=== PATIENT | female | born 1945 | race Caucasian/White ===

== ENCOUNTER → 2016-12-13 | Outpatient (CLI) | payer MEDICARE, OTHER | LOC: WI 11:23 | PROVIDERS: ATTEND Radiology Radiation Oncology | DX: C50.419 Malignant neoplasm of upper-outer quadrant of unspecified female breast (principal); D05.11 Intraductal carcinoma in situ of right breast; C77.3 Secondary and unspecified malignant neoplasm of axilla and upper limb lymph nodes | CPT/HCPCS: 77066; G0204 ==

== ENCOUNTER → 2017-04-17 | Outpatient (CLI) | payer MEDICARE, OTHER ==
[2017-04-17 13:54] LABS: ALANINE AMINOTRANSFERASE 37 U/L (9-52); ALBUMIN 4.2 g/dL (3.5-5.0); ALKALINE PHOSPHATASE 93 U/L (38-126); ASPARTATE AMINO TRANSFERASE 23 U/L (14-36); BILIRUBIN,DIRECT 0.3 mg/dL (0.0-0.4); BILIRUBIN,TOTAL 0.7 mg/dL (0.2-1.3); TOTAL PROTEIN 7.3 g/dL (6.3-8.2)
== END ==
LOC: OD 11:37
PROVIDERS: ATTEND Radiology Radiation Oncology
DX: Z79.899 Other long term (current) drug therapy (principal)
CPT/HCPCS: 36415; 80076

== ENCOUNTER → 2017-05-29 | Outpatient (CLI) | payer MEDICARE, OTHER ==
--- NOTE | 2017-05-29 12:46 | RADIOLOGY REPORT (SQ) ---
EXAM DESCRIPTION: MRI HEAD COMBO COMPLETED DATE/TIME: 05/29/2017 12:31 pm REASON FOR STUDY: BREAST CA METASTASIZED TO AXILLARY LYMPH NODE, UNSPECIFIED LATERALITY R51 HEADACH E COMPARISON: None. TECHNIQUE: Multiplanar imaging includes noncontrasted T1, T2, FLAIR, diffusion with ADC map and post gadolinium contrast T1 sequences. Images stored on PACS. CONTRAST TYPE AND DOSE: 18 mL Multihance. RENAL FUNCTION: GFR > 60. LIMITATIONS: None. FINDINGS: ANATOMY: No anomalies. Normal vascular flow voids. Pituitary fossa normal. CSF SPACES: Normal in size and contour. No hemorrhage. CEREBRUM: Sulci and gyri normal in size and contour. Normal white matter signal on FLAIR imaging. No evidence of hemorrhage, mass, or extraaxial fluid collection. No abnormal enhancement post contrast. POSTERIOR FOSSA: No signal alteration. No hemorrhage. No edema, masses, or mass effect. Internal tee tory canals, cerebellopontine angles, mastoids normal. No enhancing lesions. No abnormal enhancement post contrast. DIFFUSION IMAGING: Negative for acute or subacute infarction. ORBITS: No masses. Globes normal. PARANASAL SINUSES: No fluid levels. Mucosa normal. OTHER: No other significant finding. IMPRESSION: NORMAL MRI OF THE BRAIN WITHOUT AND WITH INTRAVENOUS GADOLINIUM CONTRAST. EVIDENCE OF ACUTE STROKE: NO. TECHNICAL DOCUMENTATION: JOB ID: [id number] [employer]- All Rights Reserved
== END ==
LOC: RAD 10:51
PROVIDERS: ATTEND Internal Medicine Medical Oncology
DX: C50.919 Malignant neoplasm of unspecified site of unspecified female breast (principal); C77.3 Secondary and unspecified malignant neoplasm of axilla and upper limb lymph nodes
CPT/HCPCS: 82565; 70553; A9577

== ENCOUNTER → 2017-07-26 | Outpatient (CLI) | payer MEDICARE, OTHER ==
--- NOTE | 2017-07-26 15:31 | RADIOLOGY REPORT (SQ) ---
EXAM DESCRIPTION: CHEST PA/LATERAL COMPLETED DATE/TIME: 07/26/2017 2:33 pm REASON FOR STUDY: PERSONAL HISTORY OF MALIGNANT NEOPLASM OF BREAST COMPARISON: 08/24/2015 EXAM PARAMETERS: NUMBER OF VIEWS: two views TECHNIQUE: Digital Frontal and Lateral radiographic views of the chest acquired. RADIATION DOSE: NA LIMITATIONS: none FINDINGS: LUNGS AND PLEURA: Subsegmental atelectasis in the left lower lobe. MEDIASTINUM AND HILAR STRUCTURES: No masses or contour abnormalities. HEART AND VASCULAR STRUCTURES: Heart normal size. No evidence for failure. BONES: No acute findings. HARDWARE: Multiple surgical clips overlie the upper and lower right chest. A PICC line on the left w ith tip of the catheter in the superior vena cava. OTHER: No other significant finding. IMPRESSION: NO SIGNIFICANT RADIOGRAPHIC FINDING IN THE CHEST. TECHNICAL DOCUMENTATION: JOB ID: [id number] [employer]- All Rights Reserved
== END ==
LOC: OD 14:13
PROVIDERS: ATTEND Internal Medicine Medical Oncology
DX: Z85.3 Personal history of malignant neoplasm of breast (principal)
CPT/HCPCS: 71020

== ENCOUNTER → 2017-12-17 | Outpatient (CLI) | payer MEDICARE, OTHER ==
--- NOTE | 2017-12-18 06:25 | WOMENS IMAGING REPORT ---
EXAM DESCRIPTION: 3D SCREENING MAMMO BILAT COMPLETED DATE/TIME: 12/17/2017 12:27 pm REASON FOR STUDY: SCREENING MAMMO Z12.31 ENCNTR SCREEN MAMMOGRAM FOR MALIGNANT NEOPLASM OF MARILIA COMPARISON: 12/13/2016 and 12/07/2015. TECHNIQUE: Standard craniocaudal and mediolateral oblique views of each breast recorded using digita l acquisition and breast tomosynthesis. LIMITATIONS: None. FINDINGS: Findings present which are benign by mammographic criteria. No suspicious masses, calcifi cations or architectural distortion. Pertinent benign findings: Surgical changes right breast. Read with the assistance of CAD. .[facility] - R2 Cenova Version 1.3 .[facility] Imaging - R2 Cenova Version 1.3 .[facility] - R2 Cenova Version 2.4 .[facility] - R2 Cenova Version 2.4 .[facility] - R2 [employer] Version 9.2 Benign mammographic findings may include one or more of the following: Smooth masses, popcorn/rim/co arse calcifications, asymmetries, post-procedure changes, and lesions with long-standing stability. IMPRESSION: BENIGN MAMMOGRAPHIC FINDINGS. BIRADS 2 BREAST DENSITY: b. There are scattered areas of fibroglandular density. BIRAD: 2 BENIGN FINDING(S) RECOMMENDATION: RECOMMENDATION: ROUTINE SCREENING COMMENT: The patient has been notified of the results by letter per SA requirements. Additional no tification policies are in place for contacting patient with suspicious or incomplete findings. Quality ID #[id number]: The [employer] recommends an annual screening mammogram for women aged 40 years or over. This facility utilizes a reminder system to ensure that all patients receive reminder letters, and/or direct phone calls for appointments. This includes reminders for routine scr eening mammograms, diagnostic mammograms, or other Breast Imaging Interventions when appropriate. Th is patient will be placed in the appropriate reminder system. The [employer] (ACR) has developed recommendations for screening MRI of the breast s in certain patient populations, to be used in conjunction with mammography. Breast MRI surveillanc e may be appropriate for women with more than 20% lifetime risk of developing breast cancer as deter mined by genetic testing, significant family history of the disease, or history of mantle radiation f or Hodgkins Disease. ACR Practice Guidelines 2008. DBT Technology DBT is a type of tomographic mammography. With conventional mammography, overlapping breast tissue ma y make lesions difficult to detect, even with good compression. DBT uses an x-ray tube that rotates a round the breast, taking images at different angles. These images are then combined to create thin sl ices of the breast that the radiologist can view as a 3D reconstruction. The [employer] unit can perform full-field digital mammograms (2D imaging); or DBT (3D imaging); or both, in a combination mode that quickly performs both the mammogram and the tomosynthesis scan while the breast is still compressed. PQRS 6045F: Fluoroscopic imaging is not utilized for breast tomosynthesis. TECHNICAL DOCUMENTATION: FINDING NUMBER: (1) ASSESSMENT: (1) JOB ID: [id number] [employer]- All Rights Reserved
== END ==
LOC: WI 11:11
PROVIDERS: ATTEND Internal Medicine Medical Oncology
DX: Z12.31 Encounter for screening mammogram for malignant neoplasm of breast (principal)
CPT/HCPCS: 77063; 77067

== ENCOUNTER 2018-03-31 23:31 | Emergency (ER) | payer MEDICARE, OTHER ==
[2018-03-31 23:40] VITALS: BP 126/69
--- NOTE | 2018-04-01 00:21 | RADIOLOGY REPORT (SQ) ---
EXAM DESCRIPTION: XR FOOT 3 OR MORE VIEWS CLINICAL HISTORY: 72 years Female, Pain s/p fall COMPARISON: None. Findings: Bony demineralization. Moderate plantar fascial enthesophyte.. Bones, joints, and soft tissues of the XR LEFT FOOT 3 VIEWS appear otherwise intact. IMPRESSION: No acute findings.
--- NOTE | 2018-04-01 00:30 | ER Document Report ---
ED General - General Chief Complaint: Foot Injury Stated Complaint: FALL/LEFT FOOT INJURY Time Seen by Provider: 04/01/18 00:03 Notes: Patient is a pleasant 72-year-old female presents with complaint of pain over her left foot. Said occurred when she tripped over her cat. She says it does hurt to bear weight. She walks with a cane. She denies any other injuries or pain anywhere other than her foot. No weakness or numbness into the toes. TRAVEL OUTSIDE OF THE [place] IN LAST 30 DAYS: No - Related Data Allergies/Adverse Reactions: No Known Allergies Allergy (Verified 01/31/14 12:25) Past Medical History - Social History Smoking Status: Never Smoker Frequency of alcohol use: None Drug Abuse: None Family History: CAD, CVA, DM, Hyperlipidemia, Hypertension - Past Medical History Cardiac Medical History: Reports: Hx Hypercholesterolemia, Hx Hypertension Endocrine Medical History: Reports: Hx Diabetes Mellitus Type 2 - boderline, Hx Hypothyroidism Malignancy Medical History: Reports: Hx Breast Cancer Musculoskeltal Medical History: Reports Hx Arthritis, Reports Hx Musculoskeletal Trauma Traumatic Medical History: Reports: Hx Fractures - left tib/fib Past Surgical History: Reports: Hx Cardiac Catheterization, Hx Lumpectomy - Immunizations Immunizations up to date: Yes Hx Diphtheria, Pertussis, Tetanus Vaccination: Yes Review of Systems - Review of Systems Notes: My Normal Review Basic REVIEW OF SYSTEMS: CONSTITUTIONAL : Denies fever, chills, or sweats. Denies recent illness. MUSCULOSKELETAL: Left foot pain SKIN: Denies rash or skin lesions. NEUROLOGICAL: Denies sensory or motor loss. ALL OTHER SYSTEMS REVIEWED AND NEGATIVE. Physical Exam - Vital signs Vitals: Temp Pulse Resp BP Pulse Ox 98.6 F 76 15 126/69 H 97 03/31/18 23:39 03/31/18 23:39 03/31/18 23:39 03/31/18 23:39 03/31/18 23:39 - Notes Notes: General Appearance: Well nourished, alert, cooperative, no acute distress, no obvious discomfort. Well appearing. Vitals: reviewed, See vital signs table. Extremities: strength 5/5 in all extremities, good pulses in all extremities, patient has pain palpation over the left foot is mainly over the first metatarsal. She does have pain when I lift up on her big toe. She has does have a little swelling over the dorsum of the foot. Ankles nontender. There is no crepitance to palpation. She has good pulses. Good capillary refill. Skin: warm, dry, appropriate color, no rash Neuro: speech clear, oriented x 3, normal affect, responds appropriately to questions. Course - Re-evaluation Re-evalutation: 04/01/18 04:59 Patient looks well. Feel patient safe discharge home. X-ray is negative. Suspect is probably has a ligamentous injury or tendinous injury to her foot. I will give her postop shoe. I wrote a prescription for a walker being that she has a hard time using crutches. Encouraged her to stay nonweightbearing of her left foot to follow-up with orthopedic this coming week. Patient agrees with plan will be discharged home. Dictation of this chart was performed using voice recognition software; therefore, there may be some unintended grammatical errors. - Vital Signs Vital signs: Temp Pulse Resp BP Pulse Ox 98.6 F 76 15 126/69 H 97 03/31/18 23:39 03/31/18 23:39 03/31/18 23:39 03/31/18 23:39 03/31/18 23:39 Discharge - Discharge Clinical Impression: Strain of foot, left Qualifiers: Encounter type: initial encounter Qualified Code(s): S96.912A - Strain of unspecified muscle and tendon at ankle and foot level, left foot, initial encounter Condition: Good Disposition: HOME, SELF-CARE Additional Instructions: Please return to the ER immediately if you develop increasing swelling or intractable pain. Please try to not bear weight on your left foot until cleared by the orthopedist. Please use your cane until your get the walker. Prescriptions: Walker [Ultra-Light Rollator] 1 each MC ONCE PRN #1 each PRN Reason: Referrals: ROSENDO MATTHEWS MD [ACTIVE STAFF] - 04/02/18
== END 2018-04-01 00:52 | disposition home or self-care (01) ==
LOC: ER 23:31
DX: S96.912A Strain of unspecified muscle and tendon at ankle and foot level, left foot, initial encounter (principal); W01.0XXA Fall on same level from slipping, tripping and stumbling without subsequent striking against object, initial encounter; E78.00 Pure hypercholesterolemia, unspecified; I10 Essential (primary) hypertension; E03.9 Hypothyroidism, unspecified
CPT/HCPCS: 99283

== ENCOUNTER → 2018-05-21 | Outpatient (CLI) | payer MEDICARE, OTHER ==
--- NOTE | 2018-05-21 11:35 | WOMENS IMAGING REPORT ---
EXAM DESCRIPTION: 3D DX MAMMO RIGHT UNILAT; U/S BREAST UNILAT LIMITED COMPLETED DATE/TIME: 05/21/2018 10:52 am; 05/21/2018 11:18 am REASON FOR STUDY: RIGHT BREAST PAIN; N63.10; RT BREAST PAIN; N63.10 C50.411 MALIG NEOPLM OF UPPER-O UTER QUADRANT OF RIGHT FEMALE COMPARISON: Multiple since 2008 TECHNIQUE: Standard craniocaudal, 90 mediolateral and mediolateral oblique images of the breast rec orded using digital acquisition and breast tomosynthesis. Right breast cone compression in the CC, X CC and MLO orientations of the lumpectomy site far upper o uter quadrant right breast LIMITATIONS: None. FINDINGS: BREAST: Right MASSES: No suspicious masses. CALCIFICATIONS: No new or suspicious calcifications. ARCHITECTURAL DISTORTION: Postoperative architectural distortion with adjacent surgical clips in the far right upper outer quadrant, is less prominent than on imaging from 2013. DEVELOPING DENSITY: None. ASYMMETRY: None noted. OTHER: Right breast skin thickening post radiation therapy. Read with the assistance of CAD. .[facility] - R2 Cenova Version 1.3 .[facility] Imaging - R2 Cenova Version 1.3 .[facility] Imaging - R2 Cenova Version 2.4 .[facility] - R2 Cenova Version 2.4 .[facility] - R2 [employer]ist [employer] Version 9.2 Right breast ultrasound: Patient indicates an area blackmon after injury in the far upper outer quadrant right breast. Ultrasound of the area of pain demonstrates the lumpectomy site. No acute hematoma. No worrisome features. IMPRESSION: No mammographic/tomosynthesis or ultrasound evidence for malignancy right breast BREAST DENSITY: b. There are scattered areas of fibroglandular density. BIRAD: 2 Benign findings. RECOMMENDATION: RECOMMENDED FOLLOW UP: Please continue yearly bilateral mammography in December 2018 SPECIFIC INTERVENTION/IMAGING/CONSULTATION RECOMMENDED:No additional intervention/ imaging/consultati on needed at this time. COMMUNICATION:Patient notified by letter COMMENT: The patient has been notified of the results by letter per MQSA requirements. Additional no tification policies are in place for contacting patient with suspicious or incomplete findings. Quality ID #225: The [employer] recommends an annual screening mammogram for women aged 40 years or over. This facility utilizes a reminder system to ensure that all patients receive reminder letters, and/or direct phone calls for appointments. This includes reminders for routine scr eening mammograms, diagnostic mammograms, or other Breast Imaging Interventions when appropriate. Th is patient will be placed in the appropriate reminder system. The [employer] (ACR) has developed recommendations for screening MRI of the breast s in certain patient populations, to be used in conjunction with mammography. Breast MRI surveillanc e may be appropriate for women with more than 20% lifetime risk of developing breast cancer as deter mined by genetic testing, significant family history of the disease, or history of mantle radiation f or Hodgkins Disease. ACR Practice Guidelines 2008. DBT Technology DBT is a type of tomographic mammography. With conventional mammography, overlapping breast tissue ma y make lesions difficult to detect, even with good compression. DBT uses an x-ray tube that rotates a round the breast, taking images at different angles. These images are then combined to create thin sl ices of the breast that the radiologist can view as a 3D reconstruction. The [employer] unit can perform full-field digital mammograms (2D imaging); or DBT (3D imaging); or both, in a combination mode that quickly performs both the mammogram and the tomosynthesis scan while the breast is still compressed. PQRS 6045F: Fluoroscopic imaging is not utilized for breast tomosynthesis. TECHNICAL DOCUMENTATION: FINDING NUMBER: (1) ASSESSMENT: (1) JOB ID: [id number] [employer]- All Rights Reserved Reading location - IP/workstation name: [email or web address]
--- NOTE | 2018-05-21 11:35 | WOMENS IMAGING REPORT ---
EXAM DESCRIPTION: 3D DX MAMMO RIGHT UNILAT; U/S BREAST UNILAT LIMITED COMPLETED DATE/TIME: 05/21/2018 10:52 am; 05/21/2018 11:18 am REASON FOR STUDY: RIGHT BREAST PAIN; N63.10; RT BREAST PAIN; N63.10 C50.411 MALIG NEOPLM OF UPPER-O UTER QUADRANT OF RIGHT FEMALE COMPARISON: Multiple since 2008 TECHNIQUE: Standard craniocaudal, 90 mediolateral and mediolateral oblique images of the breast rec orded using digital acquisition and breast tomosynthesis. Right breast cone compression in the CC, X CC and MLO orientations of the lumpectomy site far upper o uter quadrant right breast LIMITATIONS: None. FINDINGS: BREAST: Right MASSES: No suspicious masses. CALCIFICATIONS: No new or suspicious calcifications. ARCHITECTURAL DISTORTION: Postoperative architectural distortion with adjacent surgical clips in the far right upper outer quadrant, is less prominent than on imaging from 2013. DEVELOPING DENSITY: None. ASYMMETRY: None noted. OTHER: Right breast skin thickening post radiation therapy. Read with the assistance of CAD. .[facility] - R2 Cenova Version 1.3 .[facility] - R2 Cenova Version 1.3 .[facility] - R2 Cenova Version 2.4 .[facility] - R2 Cenova Version 2.4 .[facility] - R2 [employer] Version 9.2 Right breast ultrasound: Patient indicates an area blackmon after injury in the far upper outer quadrant right breast. Ultrasound of the area of pain demonstrates the lumpectomy site. No acute hematoma. No worrisome features. IMPRESSION: No mammographic/tomosynthesis or ultrasound evidence for malignancy right breast BREAST DENSITY: b. There are scattered areas of fibroglandular density. BIRAD: 2 Benign findings. RECOMMENDATION: RECOMMENDED FOLLOW UP: Please continue yearly bilateral mammography in December 2018 SPECIFIC INTERVENTION/IMAGING/CONSULTATION RECOMMENDED:No additional intervention/ imaging/consultati on needed at this time. COMMUNICATION:Patient notified by letter COMMENT: The patient has been notified of the results by letter per MQSA requirements. Additional no tification policies are in place for contacting patient with suspicious or incomplete findings. Quality ID #[id number]: The [employer] recommends an annual screening mammogram for women aged 40 years or over. This facility utilizes a reminder system to ensure that all patients receive reminder letters, and/or direct phone calls for appointments. This includes reminders for routine scr eening mammograms, diagnostic mammograms, or other Breast Imaging Interventions when appropriate. Th is patient will be placed in the appropriate reminder system. The [employer] (ACR) has developed recommendations for screening MRI of the breast s in certain patient populations, to be used in conjunction with mammography. Breast MRI surveillanc e may be appropriate for women with more than 20% lifetime risk of developing breast cancer as deter mined by genetic testing, significant family history of the disease, or history of mantle radiation f or Hodgkins Disease. ACR Practice Guidelines 2008. DBT Technology DBT is a type of tomographic mammography. With conventional mammography, overlapping breast tissue ma y make lesions difficult to detect, even with good compression. DBT uses an x-ray tube that rotates a round the breast, taking images at different angles. These images are then combined to create thin sl ices of the breast that the radiologist can view as a 3D reconstruction. The [employer] unit can perform full-field digital mammograms (2D imaging); or DBT (3D imaging); or both, in a combination mode that quickly performs both the mammogram and the tomosynthesis scan while the breast is still compressed. PQRS 6045F: Fluoroscopic imaging is not utilized for breast tomosynthesis. TECHNICAL DOCUMENTATION: FINDING NUMBER: (1) ASSESSMENT: (1) JOB ID: [id number] [employer]- All Rights Reserved Reading location - IP/workstation name: [email or web address]
== END ==
LOC: WI 10:02
PROVIDERS: ATTEND Nurse Practitioner
DX: N63.11 Unspecified lump in the right breast, upper outer quadrant (principal); Z85.3 Personal history of malignant neoplasm of breast
CPT/HCPCS: 76642; 77065; G0279

== ENCOUNTER → 2018-06-11 | Outpatient (CLI) | payer MEDICARE, OTHER ==
[2018-06-11 13:39] LABS: ALANINE AMINOTRANSFERASE 43 U/L (9-52); ALBUMIN 4.5 g/dL (3.5-5.0); ALKALINE PHOSPHATASE 78 U/L (38-126); ASPARTATE AMINO TRANSFERASE 26 U/L (14-36); BILIRUBIN,DIRECT 0.3 mg/dL (0.0-0.4); BILIRUBIN,TOTAL 0.6 mg/dL (0.2-1.3); TOTAL PROTEIN 7.2 g/dL (6.3-8.2)
== END ==
LOC: OD 11:47
PROVIDERS: ATTEND Radiology Radiation Oncology
DX: C50.419 Malignant neoplasm of upper-outer quadrant of unspecified female breast (principal); C77.3 Secondary and unspecified malignant neoplasm of axilla and upper limb lymph nodes
CPT/HCPCS: 36415; 80076

== ENCOUNTER → 2018-09-28 | Emergency (ER) | payer MEDICARE ==
[~2018-09-28] MED LIST: LIDOCAINE 2% VISCOUS SOLN 20 ML UDCUP PO ONE; MAG HYDROX/AL HYDROX/SIMETH SUSP 30 ML UDCUP PO ONE; METOCLOPRAMIDE HCL ORAL SOLN 10 MG/10 ML UDCUP PO ONE; POTASSIUM CHLORIDE 20 MEQ/15 ML UDCUP PO ONE
[2018-09-28 19:00] LABS: ABSOLUTE BASOPHILS # (AUTO) 0.1 10^3/uL (0.0-0.2); ABSOLUTE EOSINOPHILS # (AUTO) 0.2 10^3/uL (0.0-0.6); ABSOLUTE LYMPHOCYTES (AUTO) 2.6 10^3/uL (0.5-4.7); ABSOLUTE MONOCYTES (AUTO) 0.4 10^3/uL (0.1-1.4); ABSOLUTE NEUT (AUTO) 2.6 10^3/uL (1.7-8.2); EOSINOPHILS % (AUTO) 3.1 % (0-6); HEMATOCRIT 41.1 % (36.0-47.0); HEMOGLOBIN 14.2 g/dL (12.0-15.5); LYMPHOCYTES % (AUTO) 43.9 % (13-45); MEAN CORPUSCULAR HEMOGLOBIN 30.8 pg (27.0-33.4); MEAN CORPUSCULAR HGB CONC 34.5 g/dL (32.0-36.0); MEAN CORPUSCULAR VOLUME 89 fl (80-97); MONOCYTES % (AUTO) 7.5 % (3-13); PLATELET COUNT 244 10^3/uL (150-450); RED BLOOD COUNT 4.61 10^6/uL (3.72-5.28); RED CELL DISTRIBUTION WIDTH 13.8 % (11.5-14.0); SEGMENTED NEUTROPHILS % (AUTO) 43.5 % (42-78); TOTAL CELLS COUNTED % (AUTO) 100 %
--- NOTE | 2018-09-28 19:14 | RADIOLOGY REPORT (SQ) ---
EXAM DESCRIPTION: CHEST SINGLE VIEW COMPLETED DATE/TIME: 09/28/2018 6:56 pm REASON FOR STUDY: cp COMPARISON: 08/24/2015 EXAM PARAMETERS: NUMBER OF VIEWS: One view. TECHNIQUE: Single frontal radiographic view of the chest acquired. RADIATION DOSE: NA LIMITATIONS: None. FINDINGS: LUNGS AND PLEURA: No opacities, masses or pneumothorax. No pleural effusion. MEDIASTINUM AND HILAR STRUCTURES: No masses. Contour normal. HEART AND VASCULAR STRUCTURES: Heart normal in size. Normal vasculature. BONES: No acute findings. HARDWARE: Left upper extremity PICC terminates in the region of the superior vena cava. Multiple rig ht axillary and chest surgical jarrell. OTHER: No other significant finding. IMPRESSION: NO ACUTE RADIOGRAPHIC FINDING IN THE CHEST. TECHNICAL DOCUMENTATION: JOB ID: [id number] [employer]- All Rights Reserved Reading location - IP/workstation name: [email or web address]
--- NOTE | 2018-09-28 19:43 | ER Document Report ---
ED Cardiac - General Chief Complaint: Chest Pain > 30 Stated Complaint: CHEST PRESSURE Time Seen by Provider: 09/28/18 19:09 Notes: Patient is a 72-year-old female who presents to the emergency department with a chief complaint of pressure that started this morning and a cough times 3 days. She said she does not have any actual pain, but a heaviness. She has been having nausea for the past couple days. Today when she felt the chest heaviness , she called the RN hotline and was told to call EMS and be brought to the emergency department. She denies any vomiting. Was given aspirin 324 mg and 1 nitro by EMS. Her blood pressure subsequently dropped to 85/56, then she was given a normal saline bolus. She says she does feel better, but feels the urge to belch. She has a history of hypertension, breast cancer on the right side ( in remission), coronary artery disease. Her last heart cath was in the early s, in which she states she had one vessel that was 20-30% occluded. She has not gone back for another heart cath. Her last stress test was 2008 or 2009. She does not currently see a christmas tree farmer. TRAVEL OUTSIDE OF THE [place] IN LAST 30 DAYS: No - Related Data Allergies/Adverse Reactions: No Known Allergies Allergy (Verified 01/31/14 12:25) Past Medical History - General Information source: Patient - Social History Smoking Status: Current Every Day Smoker Chew tobacco use (# tins/day): No Frequency of alcohol use: None Drug Abuse: None Family History: CAD, CVA, DM, Hyperlipidemia, Hypertension Patient has suicidal ideation: No Patient has homicidal ideation: No - Past Medical History Cardiac Medical History: Reports: Hx Hypercholesterolemia, Hx Hypertension Endocrine Medical History: Reports: Hx Diabetes Mellitus Type 2 - boderline, Hx Hypothyroidism Renal/ Medical History: Denies: Hx Peritoneal Dialysis Malignancy Medical History: Reports: Hx Breast Cancer Musculoskeletal Medical History: Reports Hx Arthritis, Reports Hx Musculoskeletal Trauma Traumatic Medical History: Reports: Hx Fractures - left tib/fib Past Surgical History: Reports: Hx Cardiac Catheterization, Hx Lumpectomy - Immunizations Immunizations up to date: Yes Hx Diphtheria, Pertussis, Tetanus Vaccination: Yes Review of Systems - Review of Systems Notes: REVIEW OF SYSTEMS: CONSTITUTIONAL : Denies recent illness. Denies recent unintentional weight loss. Denies fever, chills, or sweats. EENT: Denies eye, ear, throat, or mouth pain, discharge, or symptoms. Denies nasal or sinus congestion. CARDIOVASCULAR: See HPI RESPIRATORY: See HPI GASTROINTESTINAL: See HPI GENITOURINARY: Denies difficulty urinating, burning, blood in urine, urgency or frequency. MUSCULOSKELETAL: Denies neck and back pain. Denies joint pain or swelling. SKIN: Denies rash, itchiness, or lesions HEMATOLOGIC : Denies easy bruising or bleeding. LYMPHATIC: Denies swollen, painful, enlarged glands. NEUROLOGICAL: Denies no numbness or tingling denies weakness. Denies headache. Denies altered mental status. Denies alteration in speech. PSYCHIATRIC: Denies stress, anxiety, alteration in sleep patterns, or depression. All other systems reviewed and negative. Physical Exam - Vital signs Vitals: Pulse Ox 97 09/28/18 18:29 - Notes Notes: PHYSICAL EXAMINATION: GENERAL: Appears well, healthy, well-nourished, no acute distress. HEAD: Normocephalic, atraumatic. EYES: PERRL, conjunctiva normal, all extraocular movements intact, sclera nonicteric ENT: Moderately dry mucous membranes. NECK: Supple, no noticeable swelling, redness, rash. Normal range of motion. LUNGS: Equal breath sounds bilaterally and clear to auscultation. No wheezes rales or rhonchi. CARDIOVASCULAR: S1-S2, regular rate, regular rhythm. Radial pulses 2+, normal. ABDOMEN: Normoactive bowel sounds. Soft, nontender, no guarding, no rebound tenderness, and no masses palpated. EXTREMITIES: Normal strength and range of motion, no pitting or edema. No cyanosis. NEUROLOGICAL: Moves all extremities upon command. Strength 5/5 in all extremities. PSYCH: Normal mood, normal affect. SKIN: Warm, dry. No rash, lesions, ulcerations noted. Normal skin turgor. Course - Re-evaluation Re-evalutation: 09/28/18 21:31 Patient's laboratory studies have resulted. The patient's potassium is 3.1. I will replace her potassium with 20 mEq's of potassium chloride p.o. Based off patient's history and her complaining of chest pressure throughout the day, with vague symptoms of nausea, needing to belch, and cough. I have had an extensive conversation with the patient suggesting that she needs to be admitted to be observed at least overnight due to her heart score of 5. She states, "I just do not want to be here anymore, just want to go home and be in my bed with my dog, and I just feel uncomfortable here." She continued to state , "I will sign out AMA if I need to." I have told her that if she does leave, there is a possibility of her dying, having a heart attack, or having other issues. She continues to state that she just wants to leave. I have given her strict return precautions. She does have the mental capacity to make decisions for herself and she has not been under the influence of drugs and or alcohol. - Vital Signs Vital signs: Temp Pulse Resp BP Pulse Ox 98.1 F 20 129/76 H 97 09/28/18 18:52 09/28/18 22:00 09/28/18 20:01 09/28/18 22:00 - Laboratory Result Diagrams: 09/28/18 18:46 09/28/18 19:45 Laboratory results interpreted by me: 09/28/18 19:45 Potassium 3.1 L BUN 27 H Discharge - Discharge Clinical Impression: Chest pressure Condition: Fair Disposition: AGAINST MEDICAL ADVICE Additional Instructions: You have been seen today for chest pressure. Unfortunately your work-up is incomplete. You are leaving AGAINST MEDICAL ADVICE. I highly suggest that you stay be admitted due to your risk factors. You are at high risk for having a heart attack or even dying. Return to the emergency department at any time. Referrals: REMY HUSAIN, [Primary Care Provider] - Follow up as needed
[2018-09-28 20:17] LABS: ALANINE AMINOTRANSFERASE 34 U/L (9-52); ALBUMIN 4.1 g/dL (3.5-5.0); ALKALINE PHOSPHATASE 106 U/L (38-126); ANION GAP 12 (5-19); ASPARTATE AMINO TRANSFERASE 27 U/L (14-36); BILIRUBIN,DIRECT 0.3 mg/dL (0.0-0.4); BILIRUBIN,TOTAL 0.4 mg/dL (0.2-1.3); BLOOD UREA NITROGEN 27 mg/dL (7-20); CALCIUM 9.4 mg/dL (8.4-10.2); CARBON DIOXIDE 30 mmol/L (22-30); CHLORIDE 101 mmol/L (98-107); CREATINE KINASE 66 U/L (30-135); GLUCOSE 107 mg/dL (75-110); POTASSIUM 3.1 mmol/L (3.6-5.0); SODIUM 142.9 mmol/L (137-145); TOTAL PROTEIN 7.2 g/dL (6.3-8.2)
[2018-09-28 20:29] LABS: CREATINE KINASE MB < 0.22 ng/mL (<4.55); TROPONIN I < 0.012 ng/mL
[2018-09-28 21:06] VITALS: BP 129/76
--- NOTE | 2018-09-28 21:40 | EKG REPORT ---
SEVERITY:- ABNORMAL ECG - SINUS RHYTHM VENTRICULAR PREMATURE COMPLEX PROBABLE INFERIOR INFARCT, AGE INDETERMINATE CONSIDER ANTERIOR INFARCT : Confirmed by: Carolyn Bynum MD 28-Sep-2018 21:39:37
== END | disposition left against medical advice (07) ==
LOC: ER 18:26
DX: R07.89 Other chest pain (principal); R05 Cough; R11.0 Nausea; I10 Essential (primary) hypertension; F17.200 Nicotine dependence, unspecified, uncomplicated; Z85.3 Personal history of malignant neoplasm of breast; Z82.49 Family history of ischemic heart disease and other diseases of the circulatory system; Z53.29 Procedure and treatment not carried out because of patient's decision for other reasons
CPT/HCPCS: 93005; 99285; 36415; 82553; 82550; 85025; 80053; 84484; 71045; 93010; J3490; A9270 ×2

== ENCOUNTER → 2018-12-31 | Outpatient (CLI) | payer MEDICARE, OTHER ==
--- NOTE | 2018-12-31 14:44 | WOMENS IMAGING REPORT ---
EXAM DESCRIPTION: 3D SCREENING MAMMO BILAT COMPLETED DATE/TIME: 12/31/2018 9:49 am REASON FOR STUDY: ROUTINE 3D BILATERAL SCREENING,Z12.31 Z12.31 ENCNTR SCREEN MAMMOGRAM FOR MALIGNAN T NEOPLASM OF MARILIA FINDINGS: Findings present which are benign by mammographic criteria. No suspicious masses, calcifi cations or architectural distortion. Pertinent benign findings: Old postsurgical changes from lumpectomy right breast 12 o'clock position. Read with the assistance of CAD. .[facility] - R2 C[employer] Version 1.3 .[facility] - R2 Cenova Version 2.1 .[facility] - R2 Cenova Version 2.4 .[facility] [place]2 Cenova Version 2.4 .[facility] - R2 [employer] Version 9.2 Benign mammographic findings may include one or more of the following: Smooth masses, popcorn/rim/co arse calcifications, asymmetries, post-procedure changes, and lesions with long-standing stability. IMPRESSION: BENIGN MAMMOGRAPHIC FINDINGS. BIRADS 2 BREAST DENSITY: b. There are scattered areas of fibroglandular density. BIRAD: 2 BENIGN FINDING(S) RECOMMENDATION: RECOMMENDATION: ROUTINE SCREENING COMMENT: The patient has been notified of the results by letter per SA requirements. Additional no tification policies are in place for contacting patient with suspicious or incomplete findings. Quality ID #[id number]: The [employer] recommends an annual screening mammogram for women aged 40 years or over. This facility utilizes a reminder system to ensure that all patients receive reminder letters, and/or direct phone calls for appointments. This includes reminders for routine scr eening mammograms, diagnostic mammograms, or other Breast Imaging Interventions when appropriate. Th is patient will be placed in the appropriate reminder system. The [employer] (ACR) has developed recommendations for screening MRI of the breast s in certain patient populations, to be used in conjunction with mammography. Breast MRI surveillanc e may be appropriate for women with more than 20% lifetime risk of developing breast cancer as deter mined by genetic testing, significant family history of the disease, or history of mantle radiation f or Hodgkins Disease. ACR Practice Guidelines 2008. DBT Technology DBT is a type of tomographic mammography. With conventional mammography, overlapping breast tissue ma y make lesions difficult to detect, even with good compression. DBT uses an x-ray tube that rotates a round the breast, taking images at different angles. These images are then combined to create thin sl ices of the breast that the radiologist can view as a 3D reconstruction. The Hologic unit can perform full-field digital mammograms (2D imaging); or DBT (3D imaging); or both, in a combination mode that quickly performs both the mammogram and the tomosynthesis scan while the breast is still compressed. PQRS 6045F: Fluoroscopic imaging is not utilized for breast tomosynthesis. TECHNICAL DOCUMENTATION: FINDING NUMBER: (1) ASSESSMENT: (1) JOB ID: [id number] [employer]- All Rights Reserved COMPARISON: None. Multiple since 2008 TECHNIQUE: Standard craniocaudal and mediolateral oblique views of each breast recorded using digita l acquisition and breast tomosynthesis. LIMITATIONS: None. Reading location - IP/workstation name: [email or web address]
== END ==
LOC: WI 09:22
PROVIDERS: ATTEND Internal Medicine Medical Oncology
DX: Z12.31 Encounter for screening mammogram for malignant neoplasm of breast (principal)
CPT/HCPCS: 77063; 77067

== ENCOUNTER 2020-06-17 11:51 | Observation (INO) | payer MEDICARE, OTHER ==
--- NOTE | 2020-06-17 12:43 | ER Document Report ---
ED General - General Chief Complaint: Altered Mental Status Stated Complaint: UNABLE TO CONCENTRATE Time Seen by Provider: 06/17/20 12:04 Primary Care Provider: JUSTYN JAIMES FNP [Primary Care Provider] - Follow up as needed Notes: HPI: 74-year-old female with past medical history as recorded who states last night she felt like her head was "on a string". She denies any pain to her head, blurry vision, chest pain, nausea, vomiting, fevers, or cough. She states she just felt a little more "confused" than normal. This morning she had similar symptoms and found it "hard to concentrate". She was confused who was laying on the couch and was told that it was her son. Her friend witnessed these events. Patient and her friend noticed no slurred speech, and the patient has had no weakness, numbness, or pain. She is feeling much better at this time. ROS: See HPI All other review of systems reviewed and otherwise negative Reviewed vital signs and nursing note as charted by RN. PHYSICAL EXAM: CONSTITUTIONAL: Alert and oriented and responds appropriately to questions. Well-appearing; well-nourished HEAD: Normocephalic; atraumatic EYES: PERRL; full extraocular range of motion; no nystagmus ENT: Normal nose; no rhinorrhea; moist mucous membranes; pharynx without lesions noted NECK: Supple without meningismus; non-tender; no cervical lymphadenopathy, no masses CARD: Regular rate and rhythm; no murmurs; symmetric distal pulses RESP: Normal chest excursion without splinting or tachypnea; breath sounds clear and equal bilaterally; no wheezes, no rhonchi, no rales ABD/GI: Normal bowel sounds; non-distended; soft, non-tender; no palpable organomegaly or masses BACK: The back appears normal and is non-tender to palpation EXT: Normal ROM in all joints; non-tender to palpation; no edema SKIN: No acute lesions noted NEURO: CN 2-12 intact; 5/5 bilateral upper and lower extremity strength with sensation intact to light touch; no cerebellar defects PSYCH: The patient's mood and manner are appropriate. Grooming and personal hygiene are appropriate. TRAVEL OUTSIDE OF THE [place] IN LAST 30 DAYS: No - Related Data Allergies/Adverse Reactions: No Known Allergies Allergy (Verified 01/31/14 12:25) Past Medical History - Social History Smoking Status: Current Every Day Smoker Frequency of alcohol use: None Drug Abuse: None Family History: CAD, CVA, DM, Hyperlipidemia, Hypertension - Past Medical History Cardiac Medical History: Reports: Hx Hypercholesterolemia, Hx Hypertension Endocrine Medical History: Reports: Hx Diabetes Mellitus Type 2 - boderline, Hx Hypothyroidism Renal/ Medical History: Denies: Hx Peritoneal Dialysis Malignancy Medical History: Reports: Hx Breast Cancer Musculoskeletal Medical History: Reports Hx Arthritis, Reports Hx Musculoskeletal Trauma Traumatic Medical History: Reports: Hx Fractures - left tib/fib Past Surgical History: Reports: Hx Cardiac Catheterization, Hx Lumpectomy - Immunizations Immunizations up to date: Yes Hx Diphtheria, Pertussis, Tetanus Vaccination: Yes Physical Exam - Vital signs Vitals: Temp Pulse Resp BP Pulse Ox 99.1 F 90 18 176/99 H 99 06/17/20 11:51 06/17/20 11:51 06/17/20 11:51 06/17/20 11:51 06/17/20 11:51 Course - Re-evaluation Re-evalutation: 06/17/20 12:42 Given the above history and physical, we will obtain a cardiac panel, CT scan of the head, EKG, urine analysis, and reassess. I would like to evaluate for the possibility of an intracerebral lesion or cardiac cause as well as the possibility of an electrolyte abnormality or urinary tract infection. Patient has absolutely no chest pain and has no focal neurologic deficits at this moment. There was concern for the possibility of a TIA. 06/17/20 13:07 EKG shows heart of 77, normal sinus rhythm, left axis deviation, no obvious ST elevation or depression. Inverted T wave in lead III 06/17/20 14:30 Imaging and labs as recorded. Exam is unchanged. Aspirin has been ordered. I will most likely admit the patient for observation with further imaging. - Vital Signs Vital signs: Temp Pulse Resp BP Pulse Ox 99.1 F 90 20 179/99 H 100 06/17/20 11:51 06/17/20 12:20 06/17/20 13:00 06/17/20 12:20 06/17/20 13:00 - Laboratory Result Diagrams: 06/17/20 13:26 06/17/20 13:26 Laboratory results interpreted by me: 06/17/20 13:26 WBC 3.9 L Lymph % (Auto) 45.4 H Absolute Neuts (auto) 1.6 L Seg Neutrophils % 41.0 L Discharge - Discharge Clinical Impression: Acute confusion Condition: Fair Disposition: ADMITTED OBSERVATION Admitting Provider: Tomy (Hospitalist) Unit Admitted: Telemetry Referrals: JUSTYN JAIMES FNP [Primary Care Provider] - Follow up as needed
[2020-06-17 13:43] LABS: ABSOLUTE EOSINOPHILS # (AUTO) 0.2 10^3/uL (0.0-0.6); ABSOLUTE LYMPHOCYTES (AUTO) 1.8 10^3/uL (0.5-4.7); ABSOLUTE MONOCYTES (AUTO) 0.3 10^3/uL (0.1-1.4); ABSOLUTE NEUT (AUTO) 1.6 10^3/uL (1.7-8.2); BASOPHILS % (AUTO) 1.2 % (0-2); EOSINOPHILS % (AUTO) 4.4 % (0-6); HEMATOCRIT 42.8 % (36.0-47.0); HEMOGLOBIN 14.5 g/dL (12.0-15.5); LYMPHOCYTES % (AUTO) 45.4 % (13-45); MEAN CORPUSCULAR VOLUME 91 fl (80-97); PLATELET COUNT 204 10^3/uL (150-450); RED BLOOD COUNT 4.69 10^6/uL (3.72-5.28); RED CELL DISTRIBUTION WIDTH 13.3 % (11.5-14.0); TOTAL CELLS COUNTED % (AUTO) 100 %; WHITE BLOOD COUNT 3.9 10^3/uL (4.0-10.5)
[2020-06-17 13:50] LABS: INTERNATIONAL RATION (INR) 0.97; PROTHROMBIN TIME 13.1 SEC (11.4-15.4)
[2020-06-17 14:02] LABS: ANION GAP 5 (5-19); BLOOD UREA NITROGEN 17 mg/dL (7-20); CALCIUM 8.9 mg/dL (8.4-10.2); CARBON DIOXIDE 28 mmol/L (22-30); CHLORIDE 106 mmol/L (98-107); GLUCOSE 98 mg/dL (75-110); POTASSIUM 3.8 mmol/L (3.6-5.0)
--- NOTE | 2020-06-17 14:18 | RADIOLOGY REPORT (SQ) ---
EXAM DESCRIPTION: CT HEAD WITHOUT IMAGES COMPLETED DATE/TIME: 06/17/2020 2:04 pm REASON FOR STUDY: 12 confusion COMPARISON: MRI brain dated 05/29/2017. TECHNIQUE: Axial images acquired through the brain without intravenous contrast. Images reviewed wi th bone, brain and subdural windows. Additional sagittal and coronal reconstructions were generated. Images stored on PACS. All CT scanners at this facility use dose modulation, iterative reconstruction, and/or weight based d osing when appropriate to reduce radiation dose to as low as reasonably achievable (ALARA). [facility]: Dose Right [facility]: CareDose [facility]: Dose Right [facility]: Teradose 4D [facility]: SportsBUZZ RADIATION DOSE: CT Rad equipment meets quality standard of care and radiation dose reduction techniq ues were employed. CTDIvol: 53.2 mGy. DLP: 1097 mGy-cm. mGy. LIMITATIONS: None. FINDINGS: VENTRICLES: Normal size and contour. CEREBRUM: No masses. No hemorrhage. No midline shift. No evidence for acute infarction. Normal gra y/white matter differentiation. No areas of low density in the white matter. CEREBELLUM: No masses. No hemorrhage. No alteration of density. No evidence for acute infarction. EXTRAAXIAL SPACES: No fluid collections. No masses. ORBITS AND GLOBE: No intra- or extraconal masses. Normal contour of globe without masses. CALVARIUM: No fracture. PARANASAL SINUSES: No fluid or mucosal thickening. SOFT TISSUES: No mass or hematoma. OTHER: No other significant finding. IMPRESSION: NORMAL BRAIN CT WITHOUT CONTRAST. EVIDENCE OF ACUTE STROKE: NO. COMMENT: Quality ID # [id number]: Final reports with documentation of one or more dose reduction techniques (e.g., Automated exposure control, adjustment of the mA and/or kV according to patient size, use of iterative reconstruction technique) TECHNICAL DOCUMENTATION: JOB ID: [id number] 2010 [employer]- All Rights Reserved Reading location - IP/workstation name: [email or web address]
[2020-06-17 14:20] LABS: APPEARANCE,URINE CLEAR; BILIRUBIN,URINE NEGATIVE (NEGATIVE); COLOR,URINE YELLOW; GLUCOSE, URINE NEGATIVE (NEGATIVE); KETONES,URINE NEGATIVE (NEGATIVE); PROTEIN,URINE NEGATIVE (NEGATIVE); URINE SPECIFIC GRAVITY 1.011; UROBILINOGEN,URINE NEGATIVE mg/dL (<2.0)
[2020-06-17] MEDS ORDERED: ASPIRIN 325 MG TABLET PO ONE (14:29)
--- NOTE | 2020-06-17 15:19 | EKG REPORT ---
SEVERITY:- OTHERWISE NORMAL ECG - SINUS RHYTHM LEFT AXIS DEVIATION : Confirmed by: Olivier Monreal MD 17-Jun-2020 15:18:17
[2020-06-17] MEDS ORDERED: ONDANSETRON HCL INJ/PF 4 MG/2 ML SDV IV PRN (16:06)
[2020-06-17] MEDS ORDERED: DOCUSATE SODIUM 100 MG CAPSULE PO PRN (16:06)
[2020-06-17] MEDS ORDERED: ACETAMINOPHEN 325 MG TABLET PO PRN (16:06)
[2020-06-17] MEDS ORDERED: HYDRALAZINE HCL INJ/PF 20 MG/1 ML SDV IV PRN (16:22)
[2020-06-17] MEDS ORDERED: DEXTROSE 50%-WATER 25 GM/50 ML DISP.SYRIN IV PRN ×2 (16:23)
[2020-06-17] MEDS ORDERED: DEXTROSE 40% GEL 15 GM TUBE PO PRN ×2 (16:23)
[2020-06-17] MEDS ORDERED: GLUCAGON,HUMAN RECOMB 1 MG INJ IM PRN (16:23)
--- NOTE | 2020-06-17 16:25 | PDOC H&P ---
History of Present Illness Admission Date/PCP: 06/17/20 15:24 RUTHY TSE Patient complains of: Brief episode of confusion History of Present Illness: MAHSA MELLO is a 74 year old female with a past medical history of TIA, hypertension, hyperlipidemia, DM 2, hypothyroidism, and remote breast cancer who presented to the emergency department after a brief episode of lightheadedness and confusion this morning lasting approximately 45 minutes. Patient does admit to not having taken her antihypertensives last night or this morning preceding the event. She denies any other symptoms; specifically headache, dizziness, blurred vision, chest pain, palpitations, dyspnea, slurred speech, focal deficits. Evaluation in the emergency department revealed hypertensive urgency, benign CBC, PT/INR, chemistry, troponin, and urinalysis. EKG, chest x-ray, head CT benign. She is referred to the hospital service for further evaluation management of the above-stated complaints findings. Past Medical History Cardiac Medical History: Reports: Hyperlipidema, Hypertension Denies: Congestive Heart Failure, Coronary Artery Disease, Myocardial Infarction Pulmonary Medical History: Reports: Asthma EENT Medical History: Reports: None Neurological Medical History: Reports: Other - TIA Endocrine Medical History: Reports: Diabetes Mellitus Type 2 - boderline, Hypothyroidism Renal/ Medical History: Reports: None Malignancy Medical History: Reports: Breast Cancer GI Medical History: Reports: Gastroesophageal Reflux Disease Musculoskeltal Medical History: Reports: Arthritis Skin Medical History: Reports: None Psychiatric Medical History: Reports: Tobacco Dependency Traumatic Medical History: Reports: None Hematology: Reports: None Infectious Medical History: Reports: None Past Surgical History Past Surgical History: Reports: Cardiac Catheterization, Mastectomy - Partial right mastectomy Social History Information Source: Patient Lives with: Family Smoking Status: Current Every Day Smoker Cigarettes Packs Per Day: 1 Frequency of Alcohol Use: Rare Hx Recreational Drug Use: No Hx Prescription Drug Abuse: No - Advance Directive Resuscitation Status: Full Code Family History Family History: CAD, CVA, DM, Hyperlipidemia, Hypertension Parental Family History Reviewed: Yes Children Family History Reviewed: Yes Sibling(s) Family History Reviewed.: Yes Medication/Allergy Home Medications: Amlodipine/Atorvastatin [Amlodipine-Atorvast 10-10 mg] 1 each PO BID 01/03/13 Atorvastatin Calcium 20 mg PO QHS 01/03/13 Carvedilol [Coreg 25 mg Tablet] 25 mg PO BID 01/03/13 Lisinopril [Prinivil 40 mg Tablet] 40 mg PO BID 01/03/13 Ibuprofen 800 mg PO Q8HP PRN #30 tablet 01/31/14 Walker [Ultra-Light Rollator] 1 each MC ONCE PRN #1 each 04/01/18 Allergies/Adverse Reactions: No Known Allergies Allergy (Verified 01/31/14 12:25) Review of Systems Constitutional: ABSENT: chills, fever(s), headache(s), weight gain, weight loss Eyes: ABSENT: visual disturbances Ears: ABSENT: hearing changes Cardiovascular: ABSENT: chest pain, dyspnea on exertion, edema, orthropnea, palpitations Respiratory: ABSENT: cough, hemoptysis Gastrointestinal: ABSENT: abdominal pain, constipation, diarrhea, hematemesis, hematochezia, nausea, vomiting Genitourinary: ABSENT: dysuria, hematuria Musculoskeletal: ABSENT: joint swelling Integumentary: ABSENT: rash, wounds Neurological: PRESENT: as per HPI, confusion. ABSENT: abnormal gait, abnormal speech, dizziness, focal weakness, syncope Psychiatric: ABSENT: anxiety, depression, homidical ideation, suicidal ideation Endocrine: ABSENT: cold intolerance, heat intolerance, polydipsia, polyuria Hematologic/Lymphatic: ABSENT: easy bleeding, easy bruising Physical Exam Vital Signs: Temp Pulse Resp BP Pulse Ox 99.1 F 76 23 H 185/135 H 95 06/17/20 11:51 06/17/20 15:20 06/17/20 15:20 06/17/20 15:20 06/17/20 15:20 Intake & Output 06/16/20 06/17/20 06/18/20 06:59 06:59 06:59 Weight 84.3 kg General appearance: PRESENT: no acute distress, cooperative, disheveled, obese, well-developed, well-nourished, other - Yellow/alexandra staining to teeth, lips, and fingers from tobacco Head exam: PRESENT: atraumatic, normocephalic Eye exam: PRESENT: conjunctiva pink, EOMI, PERRLA. ABSENT: scleral icterus Mouth exam: PRESENT: moist, tongue midline Teeth exam: PRESENT: dental caries, poor dentation Neck exam: ABSENT: carotid bruit, JVD, lymphadenopathy, thyromegaly Respiratory exam: PRESENT: clear to auscultation deidre, symmetrical, unlabored. ABSENT: rales, rhonchi, wheezes Cardiovascular exam: PRESENT: RRR, +S1, +S2. ABSENT: diastolic murmur, rubs, systolic murmur Pulses: PRESENT: normal dorsalis pedis pul Vascular exam: PRESENT: normal capillary refill GI/Abdominal exam: PRESENT: normal bowel sounds, soft. ABSENT: distended, guarding, mass, organolmegaly, rebound, tenderness Rectal exam: PRESENT: deferred Extremities exam: PRESENT: full ROM. ABSENT: calf tenderness, clubbing, pedal edema Neurological exam: PRESENT: alert, awake, oriented to person, oriented to place, oriented to time, oriented to situation, CN II-XII grossly intact. ABSENT: motor sensory deficit Psychiatric exam: PRESENT: appropriate affect, normal mood. ABSENT: homicidal ideation, suicidal ideation Skin exam: PRESENT: dry, intact, warm. ABSENT: cyanosis, rash Results Laboratory Results: 06/17/20 13:26 06/17/20 13:26 06/17/20 06/17/20 06/17/20 13:26 13:26 13:52 WBC 3.9 L RBC 4.69 Hgb 14.5 Hct 42.8 MCV 91 MCH 31.0 MCHC 34.0 RDW 13.3 Plt Count 204 Seg Neutrophils % 41.0 L Sodium 138.6 Potassium 3.8 Chloride 106 Carbon Dioxide 28 Anion Gap 5 BUN 17 Creatinine 0.64 Est GFR ( Amer) > 60 Glucose 98 Calcium 8.9 Urine Color YELLOW Urine Appearance CLEAR Urine pH 6.0 Ur Specific [place] 1.011 Urine Protein NEGATIVE Urine Glucose (UA) NEGATIVE Urine Ketones NEGATIVE Urine Blood NEGATIVE Urine RBC (Auto) 0 06/17/20 13:26 Troponin I < 0.012 Impressions: Head CT 06/17/20 13:33 IMPRESSION: NORMAL BRAIN CT WITHOUT CONTRAST. EVIDENCE OF ACUTE STROKE: NO. Assessment and Plan - Diagnosis (1) TIA (transient ischemic attack) Is this a current diagnosis for this admission?: Yes Plan: Patient is admitted to medical floor on continuous cardiac telemetry. We will obtain head MRI, carotid Doppler, and echocardiogram. Check hemoglobin A1c, lipid panel, TSH for further risk stratification. Continue aspirin and high-dose statin therapy. Continue Plavix 75 mg daily x21 days. Smoking cessation strongly advised. (2) Hypertensive urgency Is this a current diagnosis for this admission?: Yes Plan: Patient reports that she did not take her blood pressure medications last night or this morning due to not feeling well. She is unsure of her home medication regiment. She placed on a cardiac diet. We will resume home medication regiment once reconciled. IV hydralazine as needed for blood pressure control. We will start amlodipine 5 mg daily and carvedilol 12.5 mg twice daily. (3) Tobacco dependence Is this a current diagnosis for this admission?: Yes Plan: Smoking cessation encouraged. Nicotine replacement therapies provided. (4) Obesity Qualifiers: Obesity classification: adult class 1 (BMI 30 - 34.9) Body mass index: BMI 31.0-31.9 Is this a current diagnosis for this admission?: Yes Plan: Lifestyle modification and dietary discretion advised. Cardiac/consistent carb diet. (5) Diabetes Qualifiers: Diabetes mellitus type: type 2 Diabetes mellitus superintendent terminal insulin use: without superintendent terminal use Is this a current diagnosis for this admission?: Yes Plan: Holding oral medications while admitted. We will check A1c with a.m. lab work. Patient is placed on a consistent carb diet. Accu-Cheks before meals and at bedtime with Humalog for sliding scale coverage. Hypoglycemia protocol in place. Registered dietitian tobacco educator consulted. (6) Acute confusion Is this a current diagnosis for this admission?: Yes Plan: Resolved. Secondary to #1. Management as above. - Time Time Spent with patient: 35 or more minutes Smoking Cessation Education: 3 to 10 minutes Medications reviewed and adjusted accordingly: Yes Anticipated Discharge Disposition: Home, Self Care Anticipated Discharge Timeframe: within 24 hours
--- NOTE | 2020-06-17 19:28 | RADIOLOGY REPORT (SQ) ---
EXAM DESCRIPTION: MRI HEAD WITHOUT IMAGES COMPLETED DATE/TIME: 06/17/2020 7:10 pm REASON FOR STUDY: TIA G45.9 TRANSIENT CEREBRAL ISCHEMIC ATTACK, UNSPECIFIED COMPARISON: None. TECHNIQUE: Multiplanar imaging includes non-contrasted T1, T2, FLAIR, and diffusion with ADC map seq uences. Images stored on PACS. LIMITATIONS: None. FINDINGS: ANATOMY: No anomalies. Normal vascular flow voids. Pituitary fossa normal. CSF SPACES: Normal in size and contour. No hemorrhage. CEREBRUM: Sulci and gyri normal in size and contour. Normal white matter signal on FLAIR imaging. No evidence of hemorrhage, mass, or extraaxial fluid collection. POSTERIOR FOSSA: No signal alteration. No hemorrhage. No edema, masses or mass effect. Internal tee tory canals, cerebello-pontine angles, mastoids normal. DIFFUSION IMAGING: Negative for acute or sub-acute infarction. ORBITS: No masses. Globes normal. PARANASAL SINUSES: No fluid levels. Mucosa normal. OTHER: No other significant finding. IMPRESSION: NORMAL MRI OF THE BRAIN WITHOUT INTRAVENOUS GADOLINIUM CONTRAST. EVIDENCE OF ACUTE STROKE: NO. TECHNICAL DOCUMENTATION: JOB ID: [id number] 2010 [employer]- All Rights Reserved Reading location - IP/workstation name: [email or web address]
[2020-06-17] MEDS ORDERED: NICOTINE 21 MG/24 HR PATCH.TD24 TD ONE (19:30)
[2020-06-17] MEDS: HEPARIN SOD (PORCINE) 5,000 UNIT/ML 1 ML VIAL SUBCUT SCH (21:14)
[2020-06-17] MEDS ORDERED: CARVEDILOL 12.5 MG TABLET PO SCH (22:00)
[2020-06-17] MEDS: INSULIN LISPRO 100 UNIT/ML 3 ML VIAL SUBCUT SCH (22:00)
[2020-06-17] MEDS ORDERED: ATORVASTATIN CALCIUM 80 MG TABLET PO SCH (22:00)
[2020-06-17] MEDS ORDERED: NAPROXEN 250 MG TABLET PO PRN (22:08)
[2020-06-17] MEDS ORDERED: ESCITALOPRAM OXALATE 10 MG TABLET PO ONE (22:30)
[2020-06-17] MEDS ORDERED: ATORVASTATIN CALCIUM 40 MG TABLET PO ONE (22:30)
[2020-06-18] MEDS: HEPARIN SOD (PORCINE) 5,000 UNIT/ML 1 ML VIAL SUBCUT SCH (05:28)
[2020-06-18] MEDS ORDERED: LEVOTHYROXINE SODIUM 0.088 MG TABLET PO SCH (06:00)
[2020-06-18 06:14] LABS: HEMATOCRIT 42.4 % (36.0-47.0); HEMOGLOBIN 14.4 g/dL (12.0-15.5); MEAN CORPUSCULAR HEMOGLOBIN 30.9 pg (27.0-33.4); MEAN CORPUSCULAR HGB CONC 33.8 g/dL (32.0-36.0); MEAN CORPUSCULAR VOLUME 91 fl (80-97); PLATELET COUNT 183 10^3/uL (150-450); RED BLOOD COUNT 4.64 10^6/uL (3.72-5.28); RED CELL DISTRIBUTION WIDTH 13.5 % (11.5-14.0)
[2020-06-18 06:38] LABS: ANION GAP 6 (5-19); BLOOD UREA NITROGEN 19 mg/dL (7-20); CALCIUM 9.2 mg/dL (8.4-10.2); CARBON DIOXIDE 29 mmol/L (22-30); CHLORIDE 105 mmol/L (98-107); CHOLESTEROL 135.92 mg/dL (0-200); GLUCOSE 111 mg/dL (75-110); POTASSIUM 3.4 mmol/L (3.6-5.0); TRIGLYCERIDES 200 mg/dL (<150)
[2020-06-18 06:49] LABS: DIRECT LDL 79 mg/dL (<100)
[2020-06-18] MEDS ORDERED: PANTOPRAZOLE SODIUM 40 MG TABLET.DR PO SCH (08:00)
[2020-06-18] MEDS ORDERED: METFORMIN HCL 500 MG TABLET PO SCH (08:00)
[2020-06-18] MEDS: INSULIN LISPRO 100 UNIT/ML 3 ML VIAL SUBCUT SCH (09:00)
--- NOTE | 2020-06-18 09:07 | RADIOLOGY REPORT (SQ) ---
EXAM DESCRIPTION: CAROTID DOPPLER IMAGES COMPLETED DATE/TIME: 06/17/2020 9:08 pm REASON FOR STUDY: tia G45.9 TRANSIENT CEREBRAL ISCHEMIC ATTACK, UNSPECIFIED COMPARISON: None. TECHNIQUE: Grayscale ultrasound, Doppler velocity and spectra, and color Doppler images acquired of the extra-cranial carotid and vertebral arteries. Images stored on PACS. LIMITATIONS: None. FINDINGS: RIGHT CAROTID CCA Velocities: Within normal limits. ICA Velocities Peak systolic 0.90 m/s. End diastolic 0.33 m/s. Proximal ICA/CCA peak systolic ratio 1.4. Spectra normal. No significant plaque. LEFT CAROTID CCA Velocities: Within normal limits. ICA Velocities Peak systolic 1.24 m/s. End diastolic 0.40 m/s. Proximal ICA/CCA peak systolic ratio 2.4. Spectra normal. No significant plaque. VERTEBRAL ARTERIES: Antegrade flow. Normal waveforms. SUBCLAVIAN ARTERIES: No finding. OTHER: No other significant finding. IMPRESSION: 1. No hemodynamically significant stenosis on the right. 2. 50 to 69% stenosis in the left ICA based on ICA to CCA systolic ratio. Peak systolic velocities suggest closer to 50% narrowing. COMMENT: Quality ID #[id number]: Velocity criteria are extrapolated from the diameter data as defined by t he Society of Radiologists in Ultrasound Consensus Conference. Radiology 2003: 229; 340-346. TECHNICAL DOCUMENTATION: JOB ID: [id number] 2010 [employer]- All Rights Reserved Reading location - IP/workstation name: [email or web address]
[2020-06-18 09:28] LABS: FREE T3 2.58 pg/mL (2.77-5.27); FREE T4 (FREE THYROXINE) 1.49 ng/dL (0.78-2.19)
[2020-06-18] MEDS ORDERED: CLOPIDOGREL BISULFATE 75 MG TABLET PO SCH (10:00)
[2020-06-18] MEDS ORDERED: NICOTINE 21 MG/24 HR PATCH.TD24 TD SCH (10:00)
[2020-06-18] MEDS ORDERED: ASPIRIN 81 MG TABLET, ENT COATED PO SCH (10:00)
[2020-06-18] MEDS ORDERED: AMLODIPINE BESYLATE 2.5 MG TABLET PO SCH (10:00)
[2020-06-18] MEDS ORDERED: NIFEDIPINE 30 MG TAB.ER.24 PO SCH (10:00)
[2020-06-18] MEDS ORDERED: (PENDING PHARMACY ID) (Fexofenadine Hcl [Fexofenadine Hcl] 180 MG) PO SCH (10:00)
[2020-06-18] MEDS ORDERED: LORATADINE 10 MG TABLET PO SCH (10:00)
[2020-06-18] MEDS ORDERED: CHLORTHALIDONE 25 MG TABLET PO SCH (10:00)
[2020-06-18] MEDS ORDERED: ANASTROZOLE 1 MG TABLET PO SCH (10:00)
[2020-06-18 13:14] VITALS: BP 155/79
--- NOTE | 2020-06-18 16:27 | XCELERA REPORT ---
[address] [address] Transthoracic Echocardiogram Report Name: MAHSA MELLO Age: 74 yrs Gender: Female : 1945 Patient Status: Inpatient Patient Location: [address] [place], [place] [address] Study Date: 06/17/2020 08:17 PM History: RANDA Height: 64 in Weight: 185 lb BSA: 1.9 m2 Procedure: A complete two-dimensional transthoracic echocardiogram was performed (2D, M-mode, spectral and color flow Doppler). The study was technically adequate with some images being suboptimal in quality. Reason For Study: tia Previous Evaluation: No previous studies were available. History: TIA. Ordering Physician: OLIVA ROJAS Performed By: Nakia Streeter Interpretation Summary Left ventricular systolic function is normal. The Ejection Fraction estimate is 55-60% The right ventricle is normal in size and function. There is a trace amount of mitral regurgitation There is no aortic valve stenosis There is a trace amount of aortic regurgitation There is a trace amount of tricuspid regurgitation There is no pericardial effusion. MMode/2D Measurements & Calculations RVDd: 2.8 cm LVIDd: 4.0 cm FS: 30.0 % Ao root diam: 2.5 cm IVSd: 1.4 cm LVIDs: 2.8 cm EDV(Teich): 69.0 ml Ao root area: 5.1 cm2 LVPWd: 1.1 cm ESV(Teich): 29.1 ml LA dimension: 4.2 cm EF(Teich): 57.9 % Doppler Measurements & Calculations MV E max lara: MV P1/2t max lara: Ao V2 max: AI max lara: 97.2 cm/sec 104.7 cm/sec 126.0 cm/sec 225.9 cm/sec MV A max lara: MV P1/2t: 76.7 msec Ao max PG: AI max P.2 cm/sec MVA(P1/2t): 2.9 cm2 6.3 mmHg 20.4 mmHg MV E/A: 1.0 MV dec slope: AI dec slope: 95.6 cm/sec2 399.7 cm/sec2 AI P1/2t: MV dec time: 0.20 sec 692.3 msec LV V1 max PG: PA V2 max: PI end-d lara: AV P1/2t-pr_phl: 3.1 mmHg 81.4 cm/sec 151.2 cm/sec 692.3 msec LV V1 max: PA max P.7 mmHg 88.4 cm/sec MV P1/2t-pr_phl: 76.7 msec Left Ventricle The left ventricle is normal in size. There is mild to moderate concentric left ventricular hypertrophy. Left ventricular systolic function is normal. The Ejection Fraction estimate is 55-60%. Doppler measurements suggest pseudonormalized left ventricular relaxation, which is associated with grade II/IV or mild to moderate diastolic dysfunction. There is no thrombus. Right Ventricle The right ventricle is normal in size and function. Atria The right atrium is normal. The left atrium is mildly dilated. Mitral Valve The mitral valve is grossly normal. There is a trace amount of mitral regurgitation. Aortic Valve The aortic valve is sclerotic, but shows no functional abnormality. The aortic valve is mildly calcified. The aortic valve opens well. The aortic valve is not well visualized secondary to technical limitations. There is no aortic valve stenosis. There is a trace amount of aortic regurgitation. Tricuspid Valve The tricuspid valve is not well visualized, but is grossly normal. There is a trace amount of tricuspid regurgitation. Tricuspid regurgitation jet envelope not well defined to measure RV systolic pressure accurately. Pulmonic Valve The pulmonic valve is not well visualized. There is a mild amount of pulmonic regurgitation. Great Vessels The aortic root is normal size. The inferior vena cava appeared dilated and decreased < 50% with respiration (RAP 15-20 mmHg). Effusions There is no pericardial effusion. : OLIVA ROJAS Anil
[2020-06-18] MEDS ORDERED: ESCITALOPRAM OXALATE 10 MG TABLET PO SCH (22:00)
[2020-06-18] MEDS ORDERED: ATORVASTATIN CALCIUM 40 MG TABLET PO SCH (22:00)
--- NOTE | 2020-06-20 18:13 | PDOC DISCHARGE SUMMARY ---
Impression - Admit/DC Date/PCP Admission Date/Primary Care Provider: 06/17/20 15:24 RUTHY TSE Discharge Date: 06/18/20 - Discharge Diagnosis (1) TIA (transient ischemic attack) Is this a current diagnosis for this admission?: Yes (2) Hypertensive urgency Is this a current diagnosis for this admission?: Yes (3) Tobacco dependence Is this a current diagnosis for this admission?: Yes (4) Obesity Is this a current diagnosis for this admission?: Yes (5) Diabetes Is this a current diagnosis for this admission?: Yes (6) Acute confusion Is this a current diagnosis for this admission?: Yes - Additional Information Resuscitation Status: Full Code Discharge Diet: Cardiac, Diabetic Discharge Activity: Activity As Tolerated, Balance Activity w/Rest, Slowly Increase Activity Referrals: JUSTYN JAIMES FNP [Primary Care Provider] - 07/05/20 9:00 am (Follow up within 1 week.) Prescriptions: Atorvastatin Calcium [Lipitor 80 mg Tablet] 80 mg PO QHS #30 tablet Nicotine [Nicoderm 21 mg/24 Hr Transderm Patch] 1 each TD DAILY #30 patch.td24 Amlodipine Besylate [Norvasc 2.5 mg Tablet] 5 mg PO DAILY #30 tablet Clopidogrel Bisulfate [Plavix 75 mg Tablet] 75 mg PO DAILY #20 tablet Home Medications: Anastrozole 1 mg PO DAILY 06/17/20 Chlorthalidone [Hygroton 25 mg Tablet] 25 mg PO DAILY 06/17/20 Escitalopram Oxalate [Lexapro 10 mg Tablet] 20 mg PO QHS 06/17/20 Fexofenadine HCl 180 mg PO DAILY 06/17/20 Levothyroxine Sodium [Synthroid 0.088 mg Tablet] 88 mcg PO Q6AM 06/17/20 Metformin HCl 500 mg PO DAILY 06/17/20 Metoprolol Succinate [Toprol Xl 50 mg Tab.sr] 50 mg PO DAILY 06/17/20 Nifedipine [Procardia Xl] 30 mg PO DAILY 06/17/20 [place]-3/Dha/Epa/Fish Oil [Fish Oil 1,000 mg Softgel] 1,000 mg PO DAILY 06/17/20 Pantoprazole Sodium [Protonix [address] Tablet] 40 mg PO QAM 06/17/20 Amlodipine Besylate [Norvasc 2.5 mg Tablet] 5 mg PO DAILY #30 tablet 06/18/20 Atorvastatin Calcium [Lipitor 80 mg Tablet] 80 mg PO QHS #30 tablet 06/18/20 Clopidogrel Bisulfate [Plavix 75 mg Tablet] 75 mg PO DAILY #20 tablet 06/18/20 Nicotine [Nicoderm 21 mg/24 Hr Transderm Patch] 1 each TD DAILY #30 patch.td24 06/18/20 History of Present Illiness History of Present Illness: MAHSA MELLO is a 74 year old female with a past medical history of TIA, hypertension, hyperlipidemia, DM 2, hypothyroidism, and remote breast cancer who presented to the emergency department after a brief episode of lightheadedness and confusion this morning lasting approximately 45 minutes. Patient does admit to not having taken her antihypertensives last night or this morning preceding the event. She denies any other symptoms; specifically headache, dizziness, blurred vision, chest pain, palpitations, dyspnea, slurred speech, focal deficits. Evaluation in the emergency department revealed hypertensive urgency, benign CBC, PT/INR, chemistry, troponin, and urinalysis. EKG, chest x-ray, head CT benign. She is referred to the hospital service for further evaluation management of the above-stated complaints findings. Hospital Course Hospital Course: Patient was admitted to [facility] on continuous cardiac telemetry. She was placed on aspirin and high-dose statin therapy. She was started on Plavix. Laboratory evaluation for risk ratification showed hemoglobin A1c 6.0% and mixed hyperlipidemia. Carotid Doppler revealed no hemodynamically significant stenosis on the right with 50 to 69% stenosis on the left ICA. Discussed with patient need for periodic evaluation. Echocardiogram demonstrated LVEF 55 to 60% with pseudo-normalized left ventr icular relaxation associated with grade [address] and MRI were negative for acute findings. The patient was discharged home in stable condition. She is advised to follow up with her PCP within 1 week. She is instructed to take her medications as prescribed and to eat a heart healthy diet. She is strongly encouraged to stop smoking. Physical Exam Vital Signs: Temp Pulse Resp BP Pulse Ox 98.3 F 72 16 155/79 H 100 06/18/20 13:13 06/18/20 13:13 06/18/20 13:13 06/18/20 13:13 06/18/20 13:13 General appearance: PRESENT: no acute distress, cooperative, obese, well- developed, well-nourished, other - Yellow/alexandra staining to teeth, lips, and fingers from tobacco Head exam: PRESENT: atraumatic, normocephalic Eye exam: PRESENT: conjunctiva pink, EOMI, PERRLA. ABSENT: scleral icterus Mouth exam: PRESENT: moist, tongue midline Teeth exam: PRESENT: poor dentation Respiratory exam: PRESENT: clear to auscultation deidre, symmetrical, unlabored. ABSENT: rales, rhonchi, wheezes Cardiovascular exam: PRESENT: RRR, +S1, +S2. ABSENT: diastolic murmur, rubs, systolic murmur Pulses: PRESENT: normal dorsalis pedis pul Vascular exam: PRESENT: normal capillary refill Rectal exam: PRESENT: deferred Extremities exam: PRESENT: full ROM. ABSENT: calf tenderness, clubbing, pedal edema Musculoskeletal exam: PRESENT: ambulatory Neurological exam: PRESENT: alert, awake, oriented to person, oriented to place, oriented to time, oriented to situation, CN II-XII grossly intact. ABSENT: motor sensory deficit Psychiatric exam: PRESENT: appropriate affect, normal mood. ABSENT: homicidal ideation, suicidal ideation Skin exam: PRESENT: dry, intact, warm. ABSENT: cyanosis, rash Results Laboratory Results: WBC 4.0 10^3/uL (4.0-10.5) 06/18/20 05:48 RBC 4.64 10^6/uL (3.72-5.28) 06/18/20 05:48 Hgb 14.4 g/dL (12.0-15.5) 06/18/20 05:48 Hct 42.4 % (36.0-47.0) 06/18/20 05:48 MCV 91 fl (80-97) 06/18/20 05:48 MCH 30.9 pg (27.0-33.4) 06/18/20 05:48 MCHC 33.8 g/dL (32.0-36.0) 06/18/20 05:48 RDW 13.5 % (11.5-14.0) 06/18/20 05:48 Plt Count 183 10^3/uL (150-450) 06/18/20 05:48 Lymph % (Auto) 45.4 % (13-45) H 06/17/20 13:26 [place] % (Auto) 8.0 % (3-13) 06/17/20 13:26 Eos % (Auto) 4.4 % (0-6) 06/17/20 13:26 Baso % (Auto) 1.2 % (0-2) 06/17/20 13:26 Absolute Neuts (auto) 1.6 10^3/uL (1.7-8.2) L 06/17/20 13:26 Absolute Lymphs (auto) 1.8 10^3/uL (0.5-4.7) 06/17/20 13:26 Absolute Monos (auto) 0.3 10^3/uL (0.1-1.4) 06/17/20 13:26 Absolute Eos (auto) 0.2 10^3/uL (0.0-0.6) 06/17/20 13: Absolute Basos (auto) 0.0 10^3/uL (0.0-0.2) 06/17/20 13:26 Seg Neutrophils % 41.0 % (42-78) L 06/17/20 13:26 PT 13.1 SEC (11.4-15.4) 06/17/20 13:26 INR 0.97 06/17/20 13:26 Sodium 139.6 mmol/L (137-145) 06/18/20 05:48 Potassium 3.4 mmol/L (3.6-5.0) L 06/18/20 05:48 Chloride 105 mmol/L (98-107) 06/18/20 05:48 Carbon Dioxide 29 mmol/L (22-30) 06/18/20 05:48 Anion Gap 6 (5-19) 06/18/20 05:48 BUN 19 mg/dL (7-20) 06/18/20 05:48 Creatinine 0.70 mg/dL (0.52-1.25) 06/18/20 05:48 Est GFR ( Amer) > 60 (>60) 06/18/20 05:48 Est GFR (MDRD) Non-Af > 60 (>60) 06/18/20 05:48 Glucose 111 mg/dL (75-110) H 06/18/20 05:48 POC Glucose 196 mg/dL (70-110) H 06/18/20 11:24 Hemoglobin A1c % 6.0 % (4.7-6.0) 06/18/20 05:48 Calcium 9.2 mg/dL (8.4-10.2) 06/18/20 05:48 Troponin I < 0.012 ng/mL 06/17/20 13:26 Triglycerides 200 mg/dL (<150) H 06/18/20 05:48 Cholesterol 135.92 mg/dL (0-200) 06/18/20 05:48 LDL Cholesterol Direct 79 mg/dL (<100) 06/18/20 05:48 VLDL Cholesterol 40.0 mg/dL (10-31) H 06/18/20 05:48 HDL Cholesterol 35 mg/dL (>40) L 06/18/20 05:48 TSH 4.85 uIU/mL (0.47-4.68) H 06/18/20 05:48 Free T4 1.49 ng/dL (0.78-2.19) 06/18/20 05:48 Free T3 pg/mL 2.58 pg/mL (2.77-5.27) L 06/18/20 05:48 Urine Color YELLOW 06/17/20 13:52 Urine Appearance CLEAR 06/17/20 13:52 Urine pH 6.0 (5.0-9.0) 06/17/20 13:52 Ur Specific [place] 1.011 06/17/20 13:52 Urine Protein NEGATIVE mg/dL (NEGATIVE) 06/17/20 13:52 Urine Glucose (UA) NEGATIVE mg/dL (NEGATIVE) 06/17/20 13:52 Urine Ketones NEGATIVE mg/dL (NEGATIVE) 06/17/20 13:52 Urine Blood NEGATIVE (NEGATIVE) 06/17/20 13:52 Urine Nitrite (Reflex) NEGATIVE (NEGATIVE) 06/17/20 13:52 Urine Bilirubin NEGATIVE (NEGATIVE) 06/17/20 13:52 Urine Urobilinogen NEGATIVE mg/dL (<2.0) 06/17/20 13:52 Leukocyte Esterase Rfl NEGATIVE (NEGATIVE) 06/17/20 13:52 Urine RBC (Auto) 0 /HPF 06/17/20 13:52 Urine WBC (Reflex) < 1 /HPF 06/17/20 13:52 Urine Ascorbic Acid NEGATIVE (NEGATIVE) 06/17/20 13:52 06/17/20 13:26 Troponin I < 0.012 Impressions: Head MRI 06/17/20 00:00 IMPRESSION: NORMAL MRI OF THE BRAIN WITHOUT INTRAVENOUS GADOLINIUM CONTRAST. EVIDENCE OF ACUTE STROKE: NO. Head CT 06/17/20 13:33 IMPRESSION: NORMAL BRAIN CT WITHOUT CONTRAST. EVIDENCE OF ACUTE STROKE: NO. Carotid Doppler Study 06/17/20 16:06 IMPRESSION: 1. No hemodynamically significant stenosis on the right. 2. 50 to 69% stenosis in the left ICA based on ICA to CCA systolic ratio. Peak systolic velocities suggest closer to 50% narrowing. Plan Plan of Treatment: Patient is discharged home in stable condition. She is advised follow-up with her primary care provider within 1 week. She is instructed to eat a heart healthy diet. Take medications as prescribed. Stop smoking. Return to the emergency department as needed for concerning symptoms. Time Spent: Greater than 30 Minutes Stroke Is this a Stroke Patient?: No Acute Heart Failure - Is this a Heart Failure Patient?: No
== END 2020-06-18 14:52 | disposition home or self-care (01) ==
LOC: ER 11:51 → EH 15:24 → 3W 18:47
PROVIDERS: ADMIT Internal Medicine; ATTEND Registered Nurse
DX: G45.9 Transient cerebral ischemic attack, unspecified (principal); I16.0 Hypertensive urgency; E66.9 Obesity, unspecified; E11.9 Type 2 diabetes mellitus without complications; E03.9 Hypothyroidism, unspecified; R41.0 Disorientation, unspecified; E78.2 Mixed hyperlipidemia; M19.90 Unspecified osteoarthritis, unspecified site; F17.210 Nicotine dependence, cigarettes, uncomplicated; Z79.899 Other long term (current) drug therapy; Z79.890 Hormone replacement therapy; Z86.73 Personal history of transient ischemic attack (TIA), and cerebral infarction without residual deficits; Z85.3 Personal history of malignant neoplasm of breast; Z91.14 Patient's other noncompliance with medication regimen; Z90.11 Acquired absence of right breast and nipple; Z82.49 Family history of ischemic heart disease and other diseases of the circulatory system; Z82.3 Family history of stroke; Z68.31 Body mass index [BMI] 31.0-31.9, adult; Z79.84 Long term (current) use of oral hypoglycemic drugs
CPT/HCPCS: 99406; 93005; 99285; 36415 ×2; 84439; 82962 ×2; 84443; 85025; 85027; 85610; 80048 ×2; 81001; 84484; 84481; 83036; 80061; 93306; 93880; 70551; 70450; 93010; G0378 ×3; A9270 ×14; J0360; J3490